=== PATIENT | female | born 1975 | race Caucasian/White ===

== ENCOUNTER 2018-10-20 17:00 | Emergency (ER) | payer MEDICAID ==
[~2018-10-20] VITALS: Ht 165.1 cm; Wt 69.0 kg
[2018-10-20] MEDS ORDERED: SODIUM CHLORIDE 0.9% 1,000 ML IV ONE (18:33)
[2018-10-20] MEDS ORDERED: ONDANSETRON HCL 4MG/2ML INJ IV ONE (18:45)
[2018-10-20] MEDS ORDERED: PROPOFOL 200MG/20ML VIAL IV ONE (18:45)
[2018-10-20] MEDS ORDERED: FENTANYL CITRATE/PF 50MCG/ML 2ML VIAL IV ONE ×2 (18:45→22:15)
[2018-10-20] MEDS ORDERED: FENTANYL CITRATE/PF 50MCG/ML 2ML VIAL IV NR (20:15)
[2018-10-20] MEDS ORDERED: PROPOFOL 200MG/20ML VIAL IV NR (20:15)
[2018-10-20] MEDS ORDERED: ONDANSETRON HCL 4MG/2ML INJ IV NR (20:15)
[2018-10-20] MEDS ORDERED: MORPHINE SULFATE 10 MG/ML CPJ IV ONE (21:15)
[2018-10-20] MEDS ORDERED: MORPHINE SULFATE 4 MG/ML CPJ (NOT FOR IM USE) IV ONE (21:15)
[2018-10-20 23:00] VITALS: BP 121/69
== END 2018-10-20 23:18 | disposition home or self-care (01) ==
LOC: ER 17:02
DX: S82.855A Nondisplaced trimalleolar fracture of left lower leg, initial encounter for closed fracture (principal); W10.8XXA Fall (on) (from) other stairs and steps, initial encounter; Y93.89 Activity, other specified; Y92.018 Other place in single-family (private) house as the place of occurrence of the external cause
CPT/HCPCS: 27818; 73590; 73600; 73610; 73630; 81025; 96374; 96375; 96376; 99152; 99285; J2270; J2405; J3010; J7030; J2704